=== PATIENT | female | born 1955 | race Caucasian/White ===

== ENCOUNTER 2023-08-07 11:45 | Observation (INO) ==
--- NOTE | 2023-06-20 12:11 | PAT Medication Instructions ---
Medication Instructions Date of Service June 20, 2023 Home Medications aspirin 81 mg tablet,delayed release 81 mg PO QAM atorvastatin 20 mg tablet 20 mg PO QAM calcium carbonate 500 mg-vitamin D3 5 mcg (200 unit) tablet (Calcium 500 + D) 1 tab PO QAM levothyroxine 100 mcg tablet (Synthroid) 100 mcg PO QAM omeprazole magnesium 20 mg tablet,delayed release (Prilosec OTC) 20 mg PO QAM triamterene 37.5 mg-hydrochlorothiazide 25 mg capsule 1 cap PO QAM vit C 250 mg-vit E 90 mg-zinc 40 mg-copper 1 [id number] capsule (PreserVision AREDS-2) 1 tab PO BID MEDICATION INSTRUCTIONS: STOP taking 2 weeks before surgery vit C 250 mg-vit E 90 mg-zinc 40 mg-copper 1 [id number] capsule (PreserVision AREDS-2) 1 tab PO BID DO NOT take the morning of surgery calcium carbonate 500 mg-vitamin D3 5 mcg (200 unit) tablet (Calcium 500 + D) 1 tab PO QAM triamterene 37.5 mg-hydrochlorothiazide 25 mg capsule 1 cap PO QAM Take morning of surgery With a small sip of water, OTHERWISE NOTHING TO EAT OR DRINK AFTER MIDNIGHT: levothyroxine 100 mcg tablet (Synthroid) 100 mcg PO QAM aspirin 81 mg tablet,delayed release 81 mg PO QAM atorvastatin 20 mg tablet 20 mg PO QAM omeprazole magnesium 20 mg tablet,delayed release (Prilosec OTC) 20 mg PO QAM Other Notes If you have any questions please call us at [phone] or [phone] or [phone] or [phone]
--- NOTE | 2023-07-09 10:51 | Anesthesiology Consultation ---
Date of Service July 09, 2023 Assessment & Plan (1) Encounter for pre-operative examination: - Infectious disease screening: Per assessment on 07/09: No known current infectious disease symptoms in past. No noted Covid positive test result in past 90 days. Patient had positive exposure (patient had contact with son 06/29, patient subsequently tested positive for Covid). Patient 10 days from exposure and feeling well/asymptomatic. Patient advised to continue to monitor for symptoms and contact PAT/surgeon if development of symptoms prior to surgery. - Outpatient joint assessment: Pt currently scheduled for inpatient pathway. If surgeon requests review for outpatient joint pathway, patient is an acceptable candidate for outpatient joint program from anesthesia standpoint pending surgeon's office assessment that patient is motivated, has good support and completes [facility] preop requirements. - Elevated PTT: Isolated, elevated PTT at 41.2 on preop labs 07/09/23. No comparison levels available per chart review. Note written to PCP regarding elevated PTT (Dr. Hannah Irene/[facility])- Awaiting response. Chart Review Chart Review: Patient seen in Pre Admission Testing Teaching & Discussion Pre-Anesthesia Teaching/Discussion Notes: Instructed NPO after midnight before surgery,except medications with 15 cc of water. Medication instructions provided according to the PAT guidelines. History Surgery Operation Date: 08/07/23 10:40 Proposed Procedures p Left Total Knee Arthroplasty - Demario Gomez MD Height/Weight Height: 5 ft 3 in Weight: 91.2 kg Allergies Allergy/AdvReac Type Severity Reaction Status Date / Time prochlorperazine AdvReac Unknown Dystonic Verified 07/09/23 08:53 [From Compazine] reactions, hallucinations, neck hyperextension promethazine [From Phenergan] AdvReac Unknown Due to the Verified 07/09/23 08:53 compazine reaction Medications Home Medications Medication Instructions Recorded Confirmed Last Taken aspirin 81 mg tablet,delayed 81 mg PO QAM 06/19/23 06/19/23 Unknown release atorvastatin 20 mg tablet 20 mg PO QAM 06/19/23 06/19/23 Unknown calcium carbonate 500 mg-vitamin 1 tab PO QAM 06/19/23 06/19/23 Unknown D3 5 mcg (200 unit) tablet (Calcium 500 + D) levothyroxine 100 mcg tablet 100 mcg PO QAM 06/19/23 06/19/23 Unknown (Synthroid) omeprazole magnesium 20 mg 20 mg PO QAM 06/19/23 06/19/23 Unknown tablet,delayed release (Prilosec OTC) triamterene 37.5 1 cap PO QAM 06/19/23 06/19/23 Unknown mg-hydrochlorothiazide 25 mg capsule vit C 250 mg-vit E 90 mg-zinc 40 1 tab PO BID 06/19/23 06/19/23 Unknown mg-copper 1 jv-sowjth-uzwwqz capsule (PreserVision AREDS-2) Past Medical History Medical History Arthritis of left knee Chronic kidney disease Stage [address] [facility] Nephrology GERD (gastroesophageal reflux disease) Erasto's disease Hearing deficit left ear- significant hearing loss from the Meniere's disease Hiatal hernia History of COVID-19 06/2022 Hyperlipidemia Macular degeneration Meniere disease reason for taking the diazide medication Osteoarthritis Exercise / Class Metabolic Activity II 4-5 Yardwork/Stairs/Walk up hill (one FS (no CP, no SOB)) Past Family History Family History Other No family history of adverse response to anesthesia Past Surgical History Surgical History History of appendectomy History of bilateral tubal ligation History of cholecystectomy History of colonoscopy 2016 History of esophagogastroduodenoscopy (EGD) with EUS + liver biopsy History of hysterectomy, supracervical History of liver biopsy 05/2023 at [facility] d/t elevated liver enzymes- biopsy results "suggestive of metabolic syndrome" > A1C 12/2022 6.0% History of right knee joint replacement History of tonsillectomy Nausea and vomiting after administration of anesthetic agent Past Anesthesia History No Hx of Anesthesia Complications and No Family Hx of Anesthesia Complications History of PONV No Hx of Motion Sickness and History of PONV Social History Smoking Status: Never smoker Do You Dip or Chew Tobacco: No Hx Alcohol Use: No Hx Substance Use: No substance use type: does not use Review of Systems Patient denies chest pain, shortness of breath, dyspnea on exertion, fever, chills, cough, wheezing, palpitations. Physical Exam Vital Signs VITALS BP 120/81 P 61 TEMP 97.9 SP02 96%RA RESP 18 PHYSICAL Full cervical extension range of motion. Full TMJ range of motion. TMD 3 finger breaths Mallampati Score 2 Dentition: intact Lungs: clear throughout to auscultation Cardiac: regular rate and rhythm, no murmurs noted Spine: normal Carotid arteries: negative bruit Extremities: no LE edema Lab Results Anesthesia Preop Results Results Anesthesia Widget: WBC 5.16 K/ul (4.8-10.8) 07/09/23 Hgb 14.3 g/dl (12.0-16.0) 07/09/23 Hct 41.4 % (37.0-47.0) 07/09/23 Plt 176 K/uL (130-400) 07/09/23 Na 138 mmol/L (136-145) 07/09/23 K 3.6 mmol/L (3.5-5.1) 07/09/23 Cl 103 mmol/L (98-107) 07/09/23 CO2 28 mmol/L (21-32) 07/09/23 BUN 19 mg/dl (6-23) 07/09/23 Creat 0.93 mg/dl (0.6-1.2) 07/09/23 Glucose Level 94 mg/dl (70-99(Fasting)) 07/09/23 PT 10.4 Seconds (9.0-12.0) 07/09/23 PTT 41.2 Seconds (21.0-31.0) H* 07/09/23 INR 0.9 (0.9-1.1) 07/09/23 Blood Type O Negative 07/09/23 Antibody Screen NEGATIVE 07/09/23 Testing Laboratory Results 12/28/22 HGBA1C 6.0% AST 30 Alk phos 167 Total bilirubin 0.5 ALT 41 Electrocardiogram Date: 12/28/22 SB at 55bpm. Low voltage QRS, consider pulmonary disease, pericardial effusion or normal variant. Chest X-Ray Date: 07/09/23 FINDINGS: Cholecystectomy clips are incidentally noted. Lung volumes are normal. Lungs are clear. There is no pneumothorax or pleural effusion. Cardiac size is normal. Mediastinal contours are normal. There is no evidence for pulmonary edema. IMPRESSION: No acute cardiopulmonary findings.
--- NOTE | 2023-08-03 09:54 | History & Physical Report ---
Date of Service August 03, 2023 Assessment & Plan (1) Arthritis of left knee: 67-year-old female status post a right knee replacement 4 years ago with advanced left knee DJD. She has failed conservative treatment like to have her left knee replaced. Plan: When taken the operating room and do a left knee replacement with risks Mente this procedure explained the patient clued but not limited to DVT PE infection neurological injury vascular bleeding palm pain limb range of motion this is fairly of symptoms incomplete relief of symptoms etc. Patient understands and desires to proceed. Informed consent is obtained. She did have a slightly elevated PTT and has been undergoing a work-up. She is got a final hematology evaluation just the day before surgery or 2. We will have to make sure she is cleared by hematology. Everything else looks to be in order and ready to go. (2) History of right knee joint replacement: History of Present Illness Chief Complaint: . Persistent left knee pain discomfort. Primary Care Provider: Hannah Irene DO . 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 Gilberto for treatment of her left knee primarily at this point. She got a long history of knee problems her right knee replaced by Dr. Funk 4 years ago. She is done pretty well after initial recovery which was quite difficult. Over the past 5 years she developed increased pain discomfort left knee. Is been through extensive conservative treatment. Become more debilitated by her disease. She would like to have her knee fixed. It is global pain. The more she is up and onto more it hurts. Limps more as the day goes on. Allergies Allergy/AdvReac Type Severity Reaction Status Date / Time prochlorperazine AdvReac Unknown Dystonic Verified 07/09/23 08:53 [From Compazine] reactions, hallucinations, neck hyperextension promethazine [From Phenergan] AdvReac Unknown Due to the Verified 07/09/23 08:53 compazine reaction Home Medications Medication Instructions Recorded Confirmed Type aspirin 81 mg tablet,delayed 81 mg PO QAM 06/19/23 06/19/23 History release atorvastatin 20 mg tablet 20 mg PO QAM 06/19/23 06/19/23 History calcium carbonate 500 mg-vitamin 1 tab PO QAM 06/19/23 06/19/23 History D3 5 mcg (200 unit) tablet (Calcium 500 + D) levothyroxine 100 mcg tablet 100 mcg PO QAM 06/19/23 06/19/23 History (Synthroid) omeprazole magnesium 20 mg 20 mg PO QAM 06/19/23 06/19/23 History tablet,delayed release (Prilosec OTC) triamterene 37.5 1 cap PO QAM 06/19/23 06/19/23 History mg-hydrochlorothiazide 25 mg capsule vit C 250 mg-vit E 90 mg-zinc 40 1 tab PO BID 06/19/23 06/19/23 History mg-copper 1 [id number]-vpfluv capsule (PreserVision AREDS-2) Past Med/Surg History Medical History Arthritis of left knee Chronic kidney disease Stage 3 Follows with [facility] Nephrology GERD (gastroesophageal reflux disease) Erasto's disease Hearing deficit left ear- significant hearing loss from the Meniere's disease Hiatal hernia History of COVID-19 06/2022 Hyperlipidemia Macular degeneration Meniere disease reason for taking the diazide medication Osteoarthritis Surgical History History of appendectomy History of bilateral tubal ligation History of cholecystectomy History of colonoscopy 2016 History of esophagogastroduodenoscopy (EGD) with EUS + liver biopsy History of hysterectomy, supracervical History of liver biopsy 05/2023 at [facility] d/t elevated liver enzymes- biopsy results "suggestive of metabolic syndrome" > A1C 12/2022 6.0% History of right knee joint replacement History of tonsillectomy Nausea and vomiting after administration of anesthetic agent Family History Other No family history of adverse response to anesthesia Social History Smoking Status: Never smoker Second Hand Exposure: No; Do You Dip or Chew Tobacco: No; Hx Alcohol Use: No Hx Substance Use: No Preferred Language: Belarusian Communication Ability: Effective Slat Grader Required: No Beliefs That Will Affect Care: None Current Living Situation: Spouse Feels Safe at Home: Yes Assistive Devices: Glasses Review of Systems All systems reviewed & are unremarkable except as noted in HPI & below. Physical Exam . Physical examination reveals a pleasant healthy appearing middle-aged female. Examination of the left knee and leg reveal patient walks with a slight bit of a limp. She has slight varus alignment to her knee. Moderate soft tissue envelope. Small to moderate-sized knee effusion. She is tender the medial joint line. Range of motion is 0-1 20. No instability of examination the right knee reveals well-healed incision. Knee alignment looks anatomic. No swelling. Range of motion 0-1 20. Constitutional WD/WN, vitals as above Respiratory normal respiratory effort, lungs clear to auscultation Cardiovascular RRR, no murmur, no edema Gastrointestinal (Abdomen) normal bowel sounds, soft, nontender, no hepatosplenomegaly Results & Data Results & Data Laboratory Results . Diagnostic Findings . X-rays of the left knee reveal advanced medial compartment arthritis Feese got complete loss of medial joint space. The little bit of tibiofemoral donovan bluxation. The right knee replacement looks pretty good position without problems. PG Care Time/CCT Total # of Minutes Spent Total Time Spent with Patient: Total time spent is greater than 50% in coordination of care (as documented) at patient's floor/unit and/or counseling patient: Coding Level of Care Code None Diagnoses Arthritis of left knee M17.12 History of right knee joint replacement Z96.651
[~2023-08-07 11:45] MED LIST: ACETAMINOPHEN 500 MG TAB PO SCH; BUPIVACAINE 0.5 % 5 MG/1 ML PF 10ML VIAL ONE; BUPIVACAINE LIPOSOME/PF 266 MG, BUPIVACAINE/EPINEPHRINE 50 ML, SODIUM CHLORIDE 0.9% PF ... INFIL SCH; CeleBREX 200 MG CAP PO SCH; FAMOTIDINE 20 MG TAB PO SCH; LR 15ML/HR IV SCH; LR 60ML/HR IV SCH; METOCLOPRAMIDE HCL 10 MG TABLET PO SCH; ROPIVACAINE 0.5% 5 MG/ML 30 ML VIAL ONE; Scopolamine 1 MG TDSY TD SCH; TRANEXAMIC ACID 1,000 MG **IV Intra-op IV SCH; ceFAZolin 2000MG 2,000 MG/15 ML SYR IV SCH; dexAMETHasone**PF** 10 MG/ML VIAL IV SCH
--- NOTE | 2023-08-07 12:59 | History & Physical Bridge Note ---
Date of Service August 07, 2023 History & Physical Bridge Note I have examined the patient, reviewed the History & Physical and in the interval since the performance of the History & Physical I have noted the following changes of clinical significance: no changes noted
[2023-08-07] MEDS ORDERED: ATROPINE SULFATE 0.1 MG/ML 10ML SYR IV PRN (13:26)
[2023-08-07] MEDS ORDERED: ONDANSETRON INJ 2 MG/ML 2 ML VIAL IV PRN ×2 (13:26→18:17)
[2023-08-07] MEDS ORDERED: ePHEDrine sulfate 50 MG/ML AMP IV PRN (13:26)
[2023-08-07] MEDS ORDERED: MIDAZOLAM HCL 1 MG/ML 2ML VIAL ONE (14:22)
[2023-08-07] MEDS ORDERED: fentaNYL citrate PF 100 MCG/2 ML VIAL ONE ×2 (14:22→15:16)
[2023-08-07] MEDS ORDERED: PROPOFOL IV EMULSION 10 MG/ML 20 ML VIAL IV ONE (14:22)
[2023-08-07] MEDS ORDERED: LIDOCAINE 2% 2 ML VIAL/AMP(20MG/ML) INFIL ONE (14:22)
[2023-08-07] MEDS ORDERED: ROCURONIUM BROMIDE 10 MG/ML 5 ML VIAL IV ONE ×2 (14:41→14:42)
[2023-08-07] MEDS ORDERED: BUPIVACAINE/EPINEPHRINE 0.25% 1:200,000 30 ML VIAL ONE (14:56)
[2023-08-07] MEDS ORDERED: BUPIVACAINE LIPOSOME 1.3% 266 MG/20 ML VIAL ONE (14:56)
[2023-08-07] MEDS ORDERED: SODIUM CHLORIDE 0.9% PF INJ 10 ML VIAL ONE (14:56)
--- NOTE | 2023-08-07 17:02 | Operative Report ---
PG Post Operative Report Pre & Post Diagnosis Operation Date: 08/07/23 13:50 Pre-Op Diagnosis: Arthritis of left knee Post-Op Diagnosis: Arthritis of left knee I identified the patient and participated in the time-out.: Yes Procedure Operation Date: 08/07/23 13:50 Actual Procedures p Left Total Knee Arthroplasty(Left) - Demario Gomez MD Surgeon Demario Gomez MD Community Relations Specialist TWIN Elise PA-C Estimated Blood Loss 50 Findings Consistent with Post-Op Diagnosis Operative findings were advanced left knee medial compartment arthritis. She completed full-thickness cartilage loss with the eburnation of the medial femoral condyle medial tibial plateau. Moderate-sized joint effusion. Large soft tissue envelope. Specimens Left knee sent for pathology Anesthesia Type General Complications none Disposition Accompanied Patient To Recovery: No Indications Patient is a 67-year-old female said a long history of knee problems. She been through extensive conservative treatment which became less successful over time. She did have her right knee replaced elsewhere in the past and is done pretty well after the initial postoperative period. She now presents for left knee replacement Description of Procedure Operative implants consist of: 1 Biomet Vanguard size 62.5 left posterior stabilized femoral component. 2. Biomet size 67 tibial tray. 3. 10 mm posterior stabilized polyethylene insert. 4. 28 x 8 all poly patella. The patient was taken to the operating, identified, placed on the operating table supine position. All contractors were properly padded. IV antibiotics were provided by anesthesia team. A general anesthetic was implemented. Mcgregor catheter was placed in sterile fashion. A left thigh tourniquet was then placed in the left lower extremities and prepped and draped in usual sterile fashion. The left leg was elevated exsanguinated with use of an Esmarch and the turn was placed at 300 mmHg. An anterior approach left knee was then performed to longitudinal incision centered over the patella. Sharp dissection was through the subcutaneous tissue down the extensor mechanism. Medial parapatellar arthrotomy incision was made. Some subperiosteal dissection was carried out medially. The fat pad was dissected from Neath patella tendon. Lateral patellofemoral ligament was released. Patella subluxated laterally knee was flexed. The osteophytes taken on distal femur. The ACL and PCL released from the distal femur the tibia subluxated anteriorly. The external tibial alignment jig was then placed in the interface the tibia and adjusted 14 mm medially. Proximal tibial cut was made to move about a millimeter bone from most deficient aspect medial tibial plateau. The tibia sized to a size 67. Attention drawn the femur. The distal femur examined the sharp drill. Intramedullary canal was suction. A left 5 degree valgus cutting guide was placed. Distal femoral cutting block was pinned in place. Distal femoral cut was made to take an additional 3 mm bone off distal femur. The femur was then sized to a size 62.5. The AP cutting block was pinned parallel to the epicondylar axis which was 5 degrees of external rotation. Anterior cut, anterior chamfer, posterior cut, posterior chamfer cuts were made. The box cutting guide was placed in just slight lateral box cut was made. The knee was flexed. The remnants of the medial and lateral menisci were excised. The osteophytes taken off the posterior aspect the femur. A trial femoral component was placed. Tibial tray was pinned in maximum external rotation and the drill and stem punch were used to create defect in proximal tibia for the tibial tray. The knee was then trialed and the 10 mm insert fit most appropriately. Attention drawn to the patella. The patella was cleaned of all soft tissue. Patella thickness measured 20 mm in thickness and was cut down to 13. Sized to a size 28 patella. The lug holes were drilled for the 28 patella. The lateral osteophytes removed. Patella button was placed. Knee was taken through range of motion patella tracked nicely with no thumbs test. Attention drawn to placing the permanent components. All trial components were removed. Bone plug was placed in the distal femur limit blood loss. Double batch Palacos G cement was mixed. Biomet Vanguard size 62.5 left Po stabilized femoral component, size 67 tibial tray, 10 mm pro stabilized polyethylene insert, and a 28 x 8 all Paller patella then cemented in place. Knee was brought out into full extension till cement hardened. Final cement check was then performed. The pericapsular tissues were injected with total 100 cc of combination of 20 cc of Exparel, 30 cc normal saline, 50 cc of quarter percent Marcaine with epinephrine. Patient did receive 1 g tranexamic acid. The tourniquet was then let down for final tourniquet time 60 minutes. Hemostasis assured use electrocautery. The extensor mechanism then closed with combination 1 PDS suture #1 Vicryl suture in a [id number] fashion. Extensor mechanism checked found to be intact and the subcutaneous tissues then closed with 2 Dexon suture in a buried interrupted fashion skin was closed skin sang. Leg was then cleaned and dried and a sterile dressing with Xeroform, 4 fours, sterile cast padding, Manjinder bandage were applied. Patient then transferred to the recovery room in stable condition. Patient tolerated procedure well and there were no complications. Philip Carvajal, my physician traffic assistant, was present for the entire procedure. His assistance was essential and required for appropriate patient positioning, prepping and draping, surgical exposure, performing the technical details of the operation, placement the implants, closure of the wound, and placement of the sterile bandage. I attest to the content of the Intraoperative Record and any orders documented therein. Any exceptions are noted below.
[2023-08-07] MEDS: fentaNYL citrate PF 100 MCG/2 ML VIAL IV PRN ×2 (17:20→17:38)
--- NOTE | 2023-08-07 17:25 | XRay Report ---
XR knee LT 1 or 2V routine HISTORY: 67 years-old Female Surgical Post Op left knee arthroplasty COMPARISON: 02/14/2023. TECHNIQUE: 2 views of left knee FINDINGS: Total joint arthroplasty with patellar resurfacing. Anterior midline skin sang with expected posto perative soft tissue swelling and deep tissue air. No acute fracture or dislocation. IMPRESSION: Total joint arthroplasty with expected postoperative changes. ACT 112: Negative or not required by law. The above report was generated using voice recognition software. It may contain grammatical, syntax o r spelling errors. Electronically signed by: Declan Denny M.D. 08/07/2023 5:23 PM
--- NOTE | 2023-08-07 17:38 | Anesthesiology Progress Note ---
Date of Service August 07, 2023 Anesthesia Post Procedure Vital Signs Vital Signs: Temp Pulse Pulse Resp BP BP Pulse Ox 08/07/23 17:10 75 21 101/64 96 08/07/23 17:03 97.9 F 78 17 117/54 L 96 08/07/23 12:50 181/88 H 08/07/23 12:13 97.7 F 68 20 201/123 H 96 O2 Del Method O2 Flow Rate 08/07/23 17:10 Oxymask 6 08/07/23 17:03 Oxymask 6 08/07/23 12:50 08/07/23 12:13 Room Air Pain Intensity Left Knee: Pain Intensity: 0 Transfer of Care Handoff Completed per policy Notes Mental Status: alert / awake / arousable and participated in evaluation Patient Amnestic to Procedure: Yes Nausea / Vomiting: adequately controlled Pain: adequately controlled Airway Patency, RR, SpO2: stable & adequate BP & HR: stable & adequate Hydration State: stable & adequate Anesthetic Complications: no major complications apparent and Pt Satisfied with anesthetic care
[2023-08-07] MEDS: SODIUM CHLORIDE 0.9% 1,000 ML IV SCH (18:15)
[2023-08-07] MEDS ORDERED: ALUMINUM/MAGNESIUM SUSP 30 ML UDC PO PRN (18:17)
[2023-08-07] MEDS ORDERED: oxyCODONE HCL IR 5 MG TAB (IMMEDIATE RELEASE) PO PRN (18:17)
[2023-08-07] MEDS ORDERED: METOCLOPRAMIDE HCL INJ 5 MG/ML 2 ML VIAL IV PRN (18:17)
[2023-08-07] MEDS ORDERED: bisacodyL 10 MG SUPP PR PRN (18:17)
[2023-08-07] MEDS ORDERED: MAGNESIUM HYDROXIDE SUSP 30 ML UDC PO PRN (18:17)
[2023-08-07] MEDS ORDERED: HYDROmorphone INJ 0.5 MG/0.5 ML SYR IV PRN (18:17)
[2023-08-07] MEDS ORDERED: NALOXONE HCL 0.4 MG/1 ML VIAL/CARP IV PRN (18:17)
[2023-08-07] MEDS: Scopolamine CHECK PATCH PLACEMENT SCH ×2 (18:24→23:22)
[2023-08-07] MEDS: KETOROLAC TROMETHAMINE 15 MG/ML VIAL IV SCH ×2 (18:55→23:23)
[2023-08-07] MEDS: ASCORBIC ACID 500 MG TAB PO SCH (19:41)
[2023-08-07] MEDS: ACETAMINOPHEN 500 MG TAB PO SCH (19:53)
[2023-08-07] MEDS: SENNA 8.6 MG TAB PO SCH (19:54)
[2023-08-07] MEDS: DOCUSATE SODIUM 100 MG CAP PO SCH (19:54)
[2023-08-07] MEDS ORDERED: NON-FORMULARY MEDICATION (Vit C,E-Zn-Coppr-Lutein-Zeaxan [Preservision Areds-2] 250-90-40- PO SCH (21:00)
[2023-08-07] MEDS ORDERED: SENNA 8.6 MG TAB PO SCH (21:00)
[2023-08-07] MEDS ORDERED: TRANEXAMIC ACID / 0.7% NACL 1,000 MG/100 ML BAG IV SCH (23:00)
[2023-08-07] MEDS: ceFAZolin 2000MG 2,000 MG/15 ML SYR IV SCH (23:21)
[2023-08-08] MEDS: SODIUM CHLORIDE 0.9% 1,000 ML IV SCH (04:16)
[2023-08-08] MEDS ORDERED: INFLUENZA VACCINE HIGH-DOSE (HD-IIV4) PF 65+ 0.7mL SYR IM ONE (06:00)
[2023-08-08] MEDS: ceFAZolin 2000MG 2,000 MG/15 ML SYR IV SCH (06:27)
[2023-08-08] MEDS: KETOROLAC TROMETHAMINE 15 MG/ML VIAL IV SCH (06:27)
--- NOTE | 2023-08-08 07:08 | Surgery Progress Note ---
Date of Service August 08, 2023 Assessment & Plan (1) Status post left knee replacement: Plan: 67-year-old female postop day 1 from left knee replacement doing pretty well. Pain is reasonably well controlled. She is neurologically intact. Plan: 1. DVT prophylaxis including thigh-high teds SCDs and beginning Xarelto today for 30 days. 2. PT OT weight-bear as tolerated. Left total knee protocol. 3. Pain control doing well with current pain regimen. 4. Disposition plan to discharge to home with some home health later today if she does okay in therapy. Admission and Anticipated Discharge Date Admission Date: August 07, 2023 Subjective 67-year-old female postop day 1 from a left knee replacement. She is doing pretty well. Really not have much pain. Had a reasonable night. No chest pain or shortness of breath. Not feeling dizzy or lightheaded. Physical Exam Physical Exam: Physical examination was a pleasant middle-age female. She is lying in bed looks comfortable. Examination left leg reveals dressing clean dry and intact. She can dorsiflex and plantarflex her foot appropriately. She is neurologically intact. Respiratory: normal respiratory effort, lungs clear to auscultation Cardiovascular: RRR, no murmur, no edema Gastrointestinal (Abdomen): normal bowel sounds, soft, nontender, no hepatosplenomegaly Results & Data Vital Signs (Past 12 Hours) Vital Signs Temp Pulse Resp BP Pulse Ox O2 Del Method O2 Flow Rate 08/08/23 01:58 36.5 C 57 L 16 126/77 96 Room Air 08/07/23 21:36 36.3 C L 71 16 122/72 96 Room Air 08/07/23 20:15 36.4 C L 70 16 114/70 95 Room Air 08/07/23 19:15 72 16 124/70 95 Nasal Cannula 2.0 Laboratory Results Labs are pending. PG Care Time/CCT Total # of Minutes Spent Total Time Spent with Patient: Total time spent is greater than 50% in coordination of care (as documented) at patient's floor/unit and/or counseling patient: Coding Level of Care Code 96977 Post Operative Follow-Up Diagnoses Status post left knee replacement Z96.652
[2023-08-08] MEDS ORDERED: dexAMETHasone 10 MG in SYRINGE 0 ML IV SCH (08:00)
[2023-08-08 08:52] LABS: Hematocrit (blood only) 33.4 % (37.0-47.0); Hemoglobin 11.8 g/dl (12.0-16.0); Mean Corpuscular Hemoglobin 30.6 pg (25.0-34.0); Mean Corpuscular Hgb Conc 35.3 g/dL (32.0-36.0); Mean Corpuscular Volume 86.5 fL (80.0-100.0); Mean Platelet Volume 10.6 fL (9.4-12.4); Platelet Count 150 K/uL (130-400); RDW Coefficient of Variation 12.9 % (11.5-14.5); RDW Standard Deviation 40.8 fL (36.4-46.3); Red Blood Count 3.86 M/uL (4.20-5.40); White Blood Count 9.38 K/ul (4.8-10.8)
[2023-08-08] MEDS ORDERED: CALCIUM 600MG + VIT D 400 IU TAB PO SCH (09:00)
[2023-08-08] MEDS ORDERED: PANTOprazole 40 MG TAB PO SCH (09:00)
[2023-08-08] MEDS ORDERED: MULTIVITAMIN TAB PO SCH (09:00)
[2023-08-08] MEDS ORDERED: ATORVASTATIN 20 MG TAB PO SCH (09:00)
[2023-08-08] MEDS ORDERED: TRIAMTERENE/HCTZ 37.5/25MG CAP PO SCH (09:00)
[2023-08-08] MEDS ORDERED: LEVOTHYROXINE SODIUM 100 MCG TABLET PO SCH (09:00)
[2023-08-08] MEDS ORDERED: ASPIRIN 81 MG ECTAB PO SCH (09:00)
[2023-08-08 09:04] LABS: BUN Creatinine Ratio 18.2 (10-20); Calcium 8.7 mg/dl (8.6-10.3); Creatinine Clr Calc Pharmacy 58.8 ml/min; Est GFR (African American) 68.3 ml/min; Potassium 3.1 mmol/L (3.5-5.1)
[2023-08-08] MEDS: SENNA 8.6 MG TAB PO SCH (09:16)
[2023-08-08] MEDS: DOCUSATE SODIUM 100 MG CAP PO SCH (09:16)
[2023-08-08] MEDS: ASCORBIC ACID 500 MG TAB PO SCH (09:16)
[2023-08-08] MEDS: ACETAMINOPHEN 500 MG TAB PO SCH (09:17)
[2023-08-08] MEDS: Scopolamine CHECK PATCH PLACEMENT SCH (09:18)
[2023-08-08] MEDS ORDERED: RIVAROXABAN 10 MG TABLET PO SCH (17:00)
--- NOTE | 2023-08-11 07:57 | Discharge Summary ---
Date of Service August 11, 2023 Discharge Data Procedures Performed Operation Date: 08/07/23 13:50 Actual Procedures p Left Total Knee Arthroplasty(Left) - Demario Gomez MD Hospital Course (1) Status post left knee replacement: This is a 67 year old patient admitted on 08/07/23 and underwent total knee arthroplasty. She tolerated the procedure well and there were no complications. Transferred to the PACU post op and later to the orthopedic floor for further care. She was given ancef for antibiotic prophylaxis. She was also given RADHA stockings, SCDs, and xarelto for DVT prophylaxis. Hemoglobin, hematocrit, and vital signs were monitored during her hospital stay and remained stable. Did not require any blood transfusions. There were no complications during her hospital stay. By post op day #1 the patient was tolerating a regular diet, pain was reasonably controlled with oral pain medicine, and she was participating in physical therapy. On post op day #1 the patient was discharged home and set up with home health care. She was given printed discharge instructions including prescriptions for extra strength tylenol, xarelto, zofran, senokot, and oxycodone. Continue physical therapy, weight bearing as tolerated. Continue RADHA stockings. Follow up approximately 2 weeks post op or sooner if there are problems or concerns. Coding Level of Care Code None Diagnoses Status post left knee replacement Z96.652
== END 2023-08-08 11:15 | disposition home health service (06) ==
LOC: 3E 11:45 → ASU 11:45
DX: M17.12 Unilateral primary osteoarthritis, left knee; Z79.899 Other long term (current) drug therapy; Z79.01 Long term (current) use of anticoagulants; Z88.8 Allergy status to other drugs, medicaments and biological substances; K21.9 Gastro-esophageal reflux disease without esophagitis; Z79.890 Hormone replacement therapy; Z96.651 Presence of right artificial knee joint; H81.09 Meniere's disease, unspecified ear; E78.5 Hyperlipidemia, unspecified; N18.30 Chronic kidney disease, stage 3 unspecified; Z79.82 Long term (current) use of aspirin